=== PATIENT | female | born 1960 | race Caucasian/White ===

== ENCOUNTER 2016-08-04 12:15 | Inpatient (IN) | payer BC ==
[~2016-08-04] VITALS: Ht 177.8 cm; Wt 97.4 kg
[2016-08-04] MEDS ORDERED: MORPHINE SULFATE 4 MG/ML, 1ML ONE ×2 (13:21→13:52)
[2016-08-04] MEDS ORDERED: ONDANSETRON 2MG/ML, 2ML ONE (13:21)
[2016-08-04] MEDS ORDERED: FAMOTIDINE 20 MG/2 ML ONE (13:21)
[2016-08-04] MEDS: MORPHINE SULFATE 4 MG/ML, 1ML IVPush PRN ×3 (13:24→19:07)
[2016-08-04] MEDS ORDERED: SODIUM CHLORIDE FLUSH 10ML SYR IVF ONE (13:30)
[2016-08-04] MEDS ORDERED: ONDANSETRON 2MG/ML, 2ML IVPush ONE (13:30)
[2016-08-04] MEDS ORDERED: FAMOTIDINE 20 MG/2 ML IVP ONE (13:30)
[2016-08-04] MEDS ORDERED: SODIUM CHLORIDE 0.9% 1,000ML IVBOLUS ONE (13:30)
[2016-08-04 13:40] LABS: HEMOGLOBIN 15.6 g/dL (11.7-16.4)
[2016-08-04 13:52] LABS: BLOOD UREA NITROGEN 17 mg/dL (7-18)
[2016-08-04 13:56] LABS: ASPARTATE AMINO TRANSFERASE 6 U/L (15-37)
[2016-08-04] MEDS ORDERED: HYDROmorphone 1 MG/ML, 1ML ONE ×2 (14:46→15:52)
[2016-08-04] MEDS: HYDROmorphone 1 MG/ML, 1ML IVPush PRN ×2 (14:50→15:54)
[2016-08-04] MEDS ORDERED: OMNIPAQUE 350 MG/ML, 100ML BOTTLE ONE (14:51)
[2016-08-04] MEDS ORDERED: METRONIDAZOLE PMX 500MG/100ML 100 ML IVPB ONE (15:30)
[2016-08-04] MEDS ORDERED: CIPROFLOXACIN/PMX 400MG/200ML 100 ML IVPB ONE (15:30)
[2016-08-04 15:33] LABS: HCG UR OBC PASS
[2016-08-04] MEDS ORDERED: METRONIDAZOLE PMX 500MG/100ML 100 ML ONE (15:44)
[2016-08-04] MEDS ORDERED: HYDROmorphone 2 MG/ML, 1ML IV PRN (17:00)
[2016-08-04] MEDS ORDERED: LABETALOL 5MG/ML, 20ML IV PRN (17:00)
[2016-08-04] MEDS ORDERED: ONDANSETRON 2MG/ML, 2ML IVP PRN (17:00)
[2016-08-04 17:32] VITALS: BP 143/82
[2016-08-04] MEDS: SODIUM CHLORIDE 0.9% 1,000 ML IV SCH ×2 (18:48→23:31)
[2016-08-04] MEDS: CEFTRIAXONE PMX 1GM/50ML 50 ML IV SCH (19:04)
[2016-08-04] MEDS: HEPARIN 5,000 UNITS/ML, 1ML SQ SCH (19:04)
[2016-08-04] MEDS: FAMOTIDINE 20 MG/2 ML IV SCH (21:06)
[2016-08-04 21:08] VITALS: BP 149/84
[2016-08-04 21:22] LABS: PATH.CAST-FLAG NOT PRESENT; SPERM-FLAG NOT PRESENT; SRC-FLAG NOT PRESENT; XTAL-FLAG NOT PRESENT; YLC-FLAG NOT PRESENT
[2016-08-04 21:52] LABS: RAPID INFLUENZA A Negative (Negative); RAPID INFLUENZA B Negative (Negative)
[2016-08-04 22:13] VITALS: BP 143/82
[2016-08-04] MEDS: METRONIDAZOLE PMX 500MG/100ML 100 ML IV SCH (23:53)
[2016-08-05] MEDS: HEPARIN 5,000 UNITS/ML, 1ML SQ SCH ×3 (01:17→17:20)
[2016-08-05 03:55] VITALS: BP 136/80
[2016-08-05] MEDS: SODIUM CHLORIDE 0.9% 1,000 ML IV SCH ×3 (04:42→21:22)
[2016-08-05 06:01] LABS: HEMOGLOBIN 13.3 g/dL (11.7-16.4)
[2016-08-05 06:27] LABS: ASPARTATE AMINO TRANSFERASE 7 U/L (15-37); BLOOD UREA NITROGEN 16 mg/dL (7-18)
[2016-08-05 07:23] VITALS: BP 128/80
[2016-08-05] MEDS: FAMOTIDINE 20 MG/2 ML IV SCH ×2 (08:16→21:25)
[2016-08-05] MEDS: METRONIDAZOLE PMX 500MG/100ML 100 ML IV SCH ×2 (08:16→16:16)
[2016-08-05 13:59] VITALS: BP 153/91
[2016-08-05] MEDS: MORPHINE SULFATE 4 MG/ML, 1ML IVPush PRN ×2 (15:29→17:50)
[2016-08-05] MEDS: CEFTRIAXONE PMX 1GM/50ML 50 ML IV SCH (17:20)
[2016-08-05 19:10] VITALS: BP 144/87
[2016-08-06 00:31] VITALS: BP 148/83
[2016-08-06] MEDS: HEPARIN 5,000 UNITS/ML, 1ML SQ SCH ×2 (01:33→07:55)
[2016-08-06] MEDS: MORPHINE SULFATE 4 MG/ML, 1ML IVPush PRN (03:24)
[2016-08-06 05:49] LABS: BLOOD UREA NITROGEN 11 mg/dL (7-18)
[2016-08-06] MEDS: SODIUM CHLORIDE 0.9% 1,000 ML IV SCH (06:00)
[2016-08-06 06:40] VITALS: BP 155/78
[2016-08-06] MEDS: METRONIDAZOLE PMX 500MG/100ML 100 ML IV SCH ×2 (07:54)
[2016-08-06] MEDS: FAMOTIDINE 20 MG/2 ML IV SCH (07:54)
[2016-08-06] MEDS ORDERED: METR500T4 PO (12:52)
[2016-08-06] MEDS ORDERED: DOCU-30 PO (12:52)
[2016-08-06] MEDS ORDERED: HYDR-3240 PO (12:52)
[2016-08-06] MEDS ORDERED: CIPR500T87 PO (12:52)
[2016-08-06 13:12] VITALS: BP 160/89
[2016-08-06] MEDS ORDERED: FLU VACC QS2016-17 (36MOS+)UP/PF 0.5 ML IM-VACC ONE (13:30)
[2016-08-06] MEDS ORDERED: SODIUM CHLORIDE 0.9% 1,000 ML IV SCH (16:51)
== END 2016-08-06 14:10 | disposition home or self-care (01) | DRG 392 ==
LOC: ED 15:33 → EDIP 15:34 → ED 16:00 → 4NOR 17:09
PROVIDERS: ADMIT Internal Medicine; ATTEND Internal Medicine
PROC: 0T9B70Z Drainage of Bladder with Drainage Device, Via Natural or Artificial Opening (ICD-10-PCS; principal; 2016-08-04)
DX: K57.32 Diverticulitis of large intestine without perforation or abscess without bleeding (principal); K56.7 Ileus, unspecified; N17.9 Acute kidney failure, unspecified; E44.0 Moderate protein-calorie malnutrition; E86.1 Hypovolemia; R73.9 Hyperglycemia, unspecified; M17.0 Bilateral primary osteoarthritis of knee; R59.1 Generalized enlarged lymph nodes; F17.210 Nicotine dependence, cigarettes, uncomplicated; G89.29 Other chronic pain; Z83.3 Family history of diabetes mellitus; Z68.30 Body mass index [BMI] 30.0-30.9, adult; Z23 Encounter for immunization; H26.9 Unspecified cataract; Z90.49 Acquired absence of other specified parts of digestive tract; Z90.89 Acquired absence of other organs
CPT/HCPCS: 36415; 74020; 74177; 80048; 80053; 81001; 81025; 82040; 83605; 83690; 83735; 84100; 85025; 87040; 87400; 90686; 93005; 96365; 96375; 96376; J0696; J0744; J1170; J1644; J2405; Q9967; J7030; S0028